=== PATIENT | female | born 1940 | race Caucasian/White ===

== ENCOUNTER 2024-03-10 07:47 | Emergency (ER) | payer MEDICARE, OTHER ==
[~2024-03-10] VITALS: Ht 154.9 cm; Wt 73.7 kg
[2024-03-10 08:05] VITALS: TEMP 97.8
[2024-03-10 09:18] VITALS: PULSE 68; RESP 16
[2024-03-10 09:18] LABS: BASOPHILS % (AUTO) 0.2 % (0-1); EOSINOPHILS % (AUTO) 0.3 % (0-6); HEMATOCRIT 40.5 % (35.0-45.0); HEMOGLOBIN 13.5 g/dl (12.0-16.0); LYMPHOCYTES # (AUTO) 0.6 X10'3 (1.1-4.8); MEAN CORPUSCULAR HEMOGLOBIN 31.6 PG (27.0-31.0); MEAN CORPUSCULAR HGB CONC 33.4 g/dL (33.0-36.5); MEAN CORPUSCULAR VOLUME 94.6 FL (78-98); MEAN PLATELET VOLUME 7.5 FL (7.4-10.4); MONOCYTES # (AUTO) 0.8 X10'3 (0-0.9); MONOCYTES % (AUTO) 6.6 % (2-12); NEUTROPHILS # (AUTO) 11.3 X10'3 (1.8-7.7); NEUTROPHILS % (AUTO) 87.9 % (42-75); PLATELET COUNT 242 X10'3 (140-440); RED BLOOD COUNT 4.28 X10'6 (4.20-5.60); RED CELL DISTRIBUTION WIDTH 13.5 % (11.5-14.5); WHITE BLOOD COUNT 12.8 X10'3 (4.5-11.0)
[2024-03-10 09:28] LABS: ALBUMIN 3.4 G/DL (3.4-5.0); ANION GAP 8 (8-16); BLOOD UREA NITROGEN 27 MG/DL (7-18); BUN/CREATININE RATIO 18.2 (10.0-20.0); CALCIUM 10.1 MG/DL (8.5-10.1); CHLORIDE 101 MMOL/L (99-107); CREATININE 1.48 MG/DL (0.40-0.90); GLUCOSE 97 MG/DL (70-104); POTASSIUM 4.4 MMOL/L (3.5-5.1); SODIUM 133 MMOL/L (135-145); TOTAL CARBON DIOXIDE 23.6 MMOL/L (24-32); eCRCL 21 ML/MIN; eGFR 34 ML/MIN
[2024-03-10 09:30] LABS: PROTHROMBIN TIME 10.6 SECONDS (9.0-12.0)
[2024-03-10 15:33] VITALS: BP 137/72; O2SAT 95
== END 2024-03-10 12:15 | disposition home or self-care (01) ==
LOC: ER 07:48
DX: K92.1 Melena (principal); R11.0 Nausea; I10 Essential (primary) hypertension; E78.5 Hyperlipidemia, unspecified; Z86.718 Personal history of other venous thrombosis and embolism; Z90.710 Acquired absence of both cervix and uterus; Z72.89 Other problems related to lifestyle
CPT/HCPCS: 36415; 80048; 84145; 85025; 85610; 86885; 86900; 86901; 99283

== ENCOUNTER 2025-04-26 09:14 | Day surgery (SDC) | payer MEDICARE, OTHER ==
[2025-04-25 13:25] LABS: MEAN PLATELET VOLUME 7.8 FL (7.4-10.4); RED CELL DISTRIBUTION WIDTH 13.4 % (11.5-14.5)
[2025-04-25 13:39] LABS: APTT 25 SECONDS (22-32); INR 1.0 INR
[2025-04-25 13:42] LABS: CREATININE 1.34 MG/DL (0.40-0.90); TOTAL CARBON DIOXIDE 29.7 MMOL/L (24-32); eGFR 38 ML/MIN
[~2025-04-26] VITALS: Ht 152.4 cm; Wt 73.8 kg
[2025-04-26] VITALS (14 sets, daily range): BP systolic 141–175; BP diastolic 52–81; PULSE 60–67; RESP 10–20; TEMP 97.7; O2SAT 94–97
[~2025-04-26 09:14] MED LIST: APIX2.5T PO; ATOR10TA87 PO; FERR-29 PO; HYDR12.55 PO; LEVO25TA2 PO; LOSA100T58 PO; MULT-1085 PO; OMEG-166 PO; VANC25SO PO
[2025-04-26] MEDS ORDERED: ceFAZolin 2gm/dext,iso 50mL 50 ML IV ONE (09:40)
[2025-04-26] MEDS ORDERED: KRIL500C PO (09:43)
--- NOTE | 2025-04-26 09:46 | ELECTROCARDIOGRAPH REPORT ---
[facility] Test Date: 2025-04-26 Test Time: 09:44:13 Pat Name: BEVERLY ALMANZA Department: [facility] Patient ID: [id number] Room: Gender: F Pot [place]: CJ : 1940 Requested By: NERI GARCIA Order Number: [id number] Reading MD: Dr. DEE Garcia Measurements Intervals [place] Rate: 60 P: 0 UT: 434 QRS: 75 QRSD: 95 T: 59 QT: 443 QTc: 443 Interpretive Statements Sinus rhythm Sinus pause Prolonged UT interval Minimal ST depression, lateral leads Electronically Signed On 04-26-2025 14:44:[address] DEE Garcia Please click the below link to view image of tracing.
[2025-04-26] MEDS ORDERED: LIDOcaine 1% W/epiNEPHrine 1:100,000 20ml vial ONE (10:05)
[2025-04-26] MEDS ORDERED: fentaNYL/PF 50MCG/1 ML 2ML syringe ONE (10:05)
[2025-04-26] MEDS ORDERED: midazolam 1 mg/ML 2ml injection ONE (10:05)
[2025-04-26] MEDS ORDERED: CEPH-585 PO (12:51)
--- NOTE | 2025-04-26 13:36 | CARDIOLOGY REPORT ---
DATE OF SERVICE: 04/26/2025 DICTATING PHYSICIAN: DEE Garcia MD PERMANENT PACEMAKER IMPLANTATION REPORT GENDER: Female. AGE: 84. HEIGHT: 164 cm. WEIGHT: 73 kg. BODY SURFACE AREA: 7.7 m2. PRIMARY PHYSICIAN: Dr. Lazaro Casper. QUALIFICATIONS EXAMINER: DEE Garcia MD. INDICATION: The patient is an 84-year-old postmenopausal female with history of COPD, history of pulmonary embolism, DVT, and hypertension with sick sinus syndrome, symptomatic bradycardia, tiredness, and fatigue. Her lowest heart rate was in the 30s and 40s and she also has a second-degree AV block, intermittent. In view of exertional fatigue, tiredness, and dizzy spells, the patient prefers to proceed with permanent pacemaker implantation. Risks, benefits, and alternative options were discussed. Informed consent was obtained. PREPROCEDURE DIAGNOSIS: Sick sinus syndrome with symptomatic bradycardia and second-degree AV block. POSTPROCEDURE DIAGNOSIS: Sick sinus syndrome with symptomatic bradycardia and second-degree AV block. PROCEDURES DONE: * Fluoroscopy. * AV sequential pacemaker implantation. * Conscious sedation time was 75 minutes. SURGEON: DEE Garcia MD, [facility] SURGEON: None. ANESTHESIOLOGIST: None. ANESTHESIA: Conscious sedation and local anesthesia. COMPLICATIONS: None. ESTIMATED BLOOD LOSS: Less than 5 mL. DESCRIPTION OF PROCEDURE: The left infraclavicular area was prepped and draped in the usual fashion. Two separate accesses were obtained to the left subclavian vein using percutaneous Seldinger technique with a micropuncture wire. Two micropuncture wires were placed in the left subclavian vein. Then replaced with two J-wires. A horizontal incision was placed in the left infraclavicular area. Using blunt dissection and electrocautery, a subcutaneous prepectoral pacemaker pocket was fashioned. External ends of J wires were retrieved into the pacemaker pocket. Two 7-Kinyarwanda sheath was advanced over the J-wire. Through one of them, RV lead was advanced to the RV apex. RV apex have appropriate pacing and sensing thresholds obtained. The sheath was removed by peel-away technique. The lead was anchored to the subcutaneous tissue with Ethibond. Through the second 7-Kinyarwanda sheath, the atrial lead was advanced to the right atrium. A J-wire was formed and screwed into the right atrial appendage. Appropriate pacing and sensing thresholds were obtained. Sheath was removed by peel-away technique. The lead was anchored to the subcutaneous tissue with Ethibond. The pocket was irrigated with copious antibiotic solution. The leads were connected to the appropriate sockets of the pulse generator. Set screws were tightened. Tug test performed. Pacemaker was suspended in the pacemaker pocket. Pocket closed with continuous 0 Vicryl followed by interrupted 0 Vicryl. A third layer of interrupted 2-0 Vicryl was applied. Skin approximated with jimena. Pressure dressing was applied. TECHNICAL INFORMATION: Device used, Medtronic April MRI compatible pacemaker, model number W3DR01, serial number [id number], left pectoral location. Right atrial lead: Model number 4076, 52 cm long, serial number [id number], Medtronic, right atrial appendage. P-wave amplitude 2.3 mV, impedance, pacing threshold of 1 V at 0.4 ms. RV Lead: Model number 5076, 68 cm long, serial number [id number], Medtronic, RV apex. R-wave amplitude of 6.4 mV, 684 ohms impedance, pacing threshold of 0.5 V at 0.4 ms. IMPRESSION: An 84-year-old female with sick sinus syndrome and symptomatic bradycardia, underwent successful AV sequential pacemaker implantation with no complications. DEE Garcia MD TID: [id number] RECEIPT: [id number] CHIRAG/KEIKO cc: DEE Zurita MD(User) MTDD
[2025-04-26] MEDS: normal saline 1000ml 1,000 ML IV ONE (14:32)
[2025-04-26] MEDS: vancomycin/NS 1 GM ADD-VANTAGE 250 ML IV ONE (14:33)
--- NOTE | 2025-04-26 14:41 | RADIOLOGY REPORT ---
DI CHEST,TWO VIEWS CLINICAL HISTORY: S/P PACEMAKER COMPARISON: None TECHNIQUE: Frontal and lateral view of the chest was obtained FINDINGS: Lines and Tubes: Cardiac pacemaker projects over left chest wall. Lungs: No focal consolidation. Pleura: No effusion. No pneumothorax. Cardiomediastinal contours: Unremarkable Bones: No acute osseous abnormality. IMPRESSION: No acute cardiopulmonary disease.
== END 2025-04-26 17:00 | disposition home or self-care (01) ==
LOC: SSTAY O 09:14
PROVIDERS: ATTEND Internal Medicine Cardiovascular Disease
DX: I49.5 Sick sinus syndrome (principal); R94.31 Abnormal electrocardiogram [ECG] [EKG]; I10 Essential (primary) hypertension; J44.9 Chronic obstructive pulmonary disease, unspecified; E78.5 Hyperlipidemia, unspecified; Z86.718 Personal history of other venous thrombosis and embolism; Z79.01 Long term (current) use of anticoagulants; Z79.890 Hormone replacement therapy; Z79.899 Other long term (current) drug therapy; Z90.710 Acquired absence of both cervix and uterus; Z88.8 Allergy status to other drugs, medicaments and biological substances
CPT/HCPCS: 33208; 36415; 71046; 80048; 85025; 85610; 85730; 93005; 99152; 99153; A4565; A6402; C1785; C1898; J0690; J1200; J2250; J3010; J3373; J3490; J7030; Z7610; A6449